=== PATIENT | female | born 1980 | race Hispanic/Latino ===

== ENCOUNTER → 2020-09-28 | Day surgery (SDC) | payer BC ==
[2020-09-26 10:41] LABS: BASOPHILS % 0.4 % (0.0-1.0); EOSINOPHILS # (AUTO) 0.1 (0.0-0.4); EOSINOPHILS % 0.7 % (0.0-6.0); HEMATOCRIT 33.2 % (34.2-44.1); HEMOGLOBIN 10.2 g/dL (12.0-16.0); LYMPHOCYTES # (AUTO) 1.8 (1.0-3.2); LYMPHOCYTES % 25.8 % (18.0-39.1); MEAN CORPUSCULAR HEMOGLOBIN 22.6 pg (28-32); MEAN CORPUSCULAR HGB CONC 30.7 g/dL (31-35); MEAN CORPUSCULAR VOLUME 73.5 fL (81-99); MONOCYTES # (AUTO) 0.4 (0.2-0.8); NEUTROPHILS # (AUTO) 4.6 (2.1-6.9); NEUTROPHILS % 66.5 % (38.7-80.0); PLATELET COUNT 200 x10e3/uL (140-360); RED BLOOD COUNT 4.52 x10e6/uL (3.6-5.1); RED CELL DISTRIBUTION WIDTH 17.5 % (11.7-14.4)
[2020-09-26 11:01] LABS: ANION GAP 14.1 mmol/L (8-16); BLOOD UREA NITROGEN 9 mg/dL (7-26); BUN/CREATININE RATIO 13 (6-25); CALCIUM 8.9 mg/dL (8.4-10.2); CARBON DIOXIDE 29 mmol/L (22-29); CHLORIDE 101 mmol/L (98-107); EST GLOMERULAR FILTRATION RATE > 60 ML/MIN (60-); GLUCOSE 132 mg/dL (74-118); POTASSIUM 4.1 mmol/L (3.5-5.1); SODIUM 140 mmol/L (136-145)
[~2020-09-28] MED LIST: ATROPINE SULFATE 1 MG/ML VIAL ONE; BUPIVACAINE 0.25% 30ML SDV INJ ONE; DEXAMETHASONE SOD PHOS INJ 4 MG/ML VIAL ONE; FENTANYL CITRATE/PF 100MCG/2 ML INJ ONE; KETOROLAC TROMETHAMINE 30 MG/ML VIAL ONE; LEVOFLOXACIN 500MG/D5W 100ML 100 ML IV ONE; LIDOCAINE HCL 2% LOCAL INJ 5 ML SDV VIAL INJ ONE; MIDAZOLAM HCL 2 MG/2 ML VIAL ONE; NEOSTIGMINE 1 MG/ML 10ML VIAL ONE; NOVOLIN N100 UNIT/4 SC; NOVOLIN R100 UNIT/3 SC; ONDANSETRON HCL INJ 2MG/ML 2ML 2 MG/ML VIAL ONE; PROPOFOL IV EMULSION 10 MG/ML 20 ML VIAL ONE; ROCURONIUM BROMIDE 10 MG/ML 5ML VIAL IV ONE; SEVOFLURANE INHAL SOLN 250 ML PEN BTL ONE
--- NOTE | 2020-09-28 13:10 | Operative Report ---
DATE OF PROCEDURE: 09/28/2020 SURGEON: Cesar Decker MD PREOPERATIVE DIAGNOSIS: Ventral hernia. POSTOPERATIVE DIAGNOSIS: Ventral hernia. OPERATION PERFORMED: Repair of ventral hernia with mesh. STOCK TRADER: EARLE Peters. ANESTHESIA: General. COMPLICATIONS: None. ESTIMATED BLOOD LOSS: Minimal. DESCRIPTION OF PROCEDURE: With the patient lying in bed in the supine position under good general anesthesia, the abdomen was prepped with Betadine solution and draped in the usual manner. A similar incision was made in the mid abdomen, carried down through the subcutaneous tissue down to the fascia. There was a large hernia sac present, which was slowly and carefully from all of the surrounding structures with normal fascia all the way around, the umbilicus was then detached from the hernia sac. The hernia sac was then opened and there was a lot of omentum with adhesions to the inside of the hernia sac. All of the adhesions were taken down and the omentum and the bowel was reduced back to the intra-abdominal cavity. After this was done, the excess of the hernia sac was then resected. Hemostasis was ascertained. A large Ventralex patch was then placed through the defect into the intra-abdominal cavity and deployed without any difficulty and the defect was then closed transversely using interrupted sutures of 0 Ethibond anchoring the mesh with the repair. This gave us a satisfactory closure without any tension. The whole area was then thoroughly irrigated. Perfect hemostasis was ascertained. The fascia was infiltrated with 0.25% Marcaine. The umbilicus was then tacked back down to the midline fascia with 3-0 Vicryl. The subcutaneous tissue was approximated with 3-0 Vicryl and the skin was closed with subcuticular 5-0 Vicryl. Benzoin Steri-Strips and dressings were applied. The sponge, lap, and needle count was correct. The patient tolerated the procedure well and returned to the recovery room in stable condition. MD JOI DemarcoR/DEWEYL /[id number]
[2020-09-28 13:45] VITALS: BP 117/73
== END | disposition home or self-care (01) ==
LOC: OR 07:42 → EDSEX 10:00
PROVIDERS: ATTEND Surgery
DX: K43.9 Ventral hernia without obstruction or gangrene (principal); E11.9 Type 2 diabetes mellitus without complications; Z88.0 Allergy status to penicillin; Z01.810 Encounter for preprocedural cardiovascular examination; Z01.812 Encounter for preprocedural laboratory examination; Z11.59 Encounter for screening for other viral diseases; Z79.4 Long term (current) use of insulin
CPT/HCPCS: 36415 ×2; 49560; 49568; 80048; 81025; 82948; 85025; 88302; 93005; C1781; J0461; J1100; J1885; J1956; J2001; J2405; J2704; J2710; J3010; U0002; J2250